=== PATIENT | female | born 1965 | race Caucasian/White ===

== ENCOUNTER → 2017-08-24 07:36 | Outpatient (CLI) | payer OTHER, SELFPAY ==
--- NOTE | 2017-08-24 08:00 | BRBX_PTH ---
PATIENT: TEVIN VILLATORO LOC: ANY U#:[id number] AGE/SX: 59/F ROOM: RE08/24/[address]: Dr. Pita Whyte MD : 1965 BED: DIS: SPEC #: [id number] RECD: 08/24/17 12:50 STATUS: MEENA HIPOLITO #: [id number] ROOSEVELT: 08/24/17 08:[address]: Pita Whyte DEPT: SURGICAL PATHOLOGY RECD BY: Redd Riojas Tissues: Left breast, NOS Procedures: Surgery Specimen Level IV Comments: @ Specimen number changed from [id number] to [id number] @ on 08/24/17 at 1404 by RGOOD. HEADER OPERATION: Left breast stereotactic needle core biopsy PRE-OP DIAGNOSIS: Left breast 11 o?clock middle depth microcalcifications TISSUE SUBMITTED: Left breast core tissue ISCHEMIC TIME: 1 minute FIXATION TIME: 11.5 hours MICROSCOPIC DIAGNOSIS Left breast, 11 o?clock middle depth microcalcifications, stereotactic needle core biopsy: Fibrocystic changes and intraductal hyperplasia without atypia. Focal microcalcifications. Negative for malignancy. JI:blake 08/25/17 COMMENT Correlation with clinical, radiologic findings and appropriate follow up are necessary. MICROSCOPIC DESCRIPTION Slides are reviewed. GROSS DESCRIPTION Received is one container labeled with the patient's name and not further designated. The specimen consists of multiple elongated fragments of oreilly-yellow fibroadipose tissue that in aggregate measure 5 x 3 x 0.3 cm. The entire specimen is submitted in two cassettes. / JI:blake 08/24/17 TC:5 CPT: 96134
--- NOTE | 2017-08-24 09:15 | PCM.OPRPT ---
Report of Operation Date of Procedure: 08/24/17 Pre-Operative Diagnosis: abnormal calcifications on left breast mammograms Post-Operative Diagnosis: same Surgery/Procedure Performed:: left stereotactic breast biopsy Description of Surgical Findings:: deep centrally located calcifications Type of Anesthesia:: Local - 1% xylocaine Anesthesiologist: none Specimen's removed: left breast tissue Estimated Blood Loss (mL): < 1 ml Fluids Replaced: none Description of Procedure: After informed consent was given, the patient was brought into the breast biopsy suite. Appropriate time out protocol was followed. She was then placed in the prone position on the stereotactic biopsy table. The patients left breast was then placed in the opening at the head of the table. A surgical instrument repair specialist compression mammogram was then obtained in the lateral view. The suspicious radiological lesion was then identified. Stereo pictures of the lesion were then taken for XYZ coordinates. The Mammotome biopsy stylus was then positioned where it would be entering into the patients breast. The skin at this site was then cleansed with a surgical skin preparation. The skin and subcutaneous tissues at this site were then infiltrated with 1% xylocaine. A small skin incision was made with an 11 blade scalpel. The biopsy stylus was then positioned into the patients breast at the proper coordinates of depth. Using the Mammotome vacuum-assist device, several core samples of breast tissue were obtained. A specimen mammogram was the obtained and revealed that the abnormal calcifications were within the specimen. A hemostatic marker clip was then placed into the biopsy cavity and a surgical instrument repair specialist film revealed that it was properly deployed. The patient was then placed in the supine position and pressure was applied to the breast until no active bleeding was noted. Steristrips were applied to reapproximate the skin. A unilateral mammogram in the CC and MLO view were then taken which revealed that the marker clip was in the same area as the previous suspicious lesion. The patient tolerated the procedure well and was discharged from the breast biopsy suite in good condition. - Complications none noted
== END ==
PROVIDERS: Visit Provider Surgery
DX: N62 Hypertrophy of breast (principal); R92.0 Mammographic microcalcification found on diagnostic imaging of breast
CPT/HCPCS: 19081; 19082; 88305; J7050

== ENCOUNTER 2017-12-25 10:00 | Outpatient (RCR) | payer OTHER, SELFPAY | END 2018-01-06 23:59 | LOC: DC 10:00 | PROVIDERS: Visit Provider Family Medicine | DX: E11.9 Type 2 diabetes mellitus without complications (principal); I10 Essential (primary) hypertension; Z71.3 Dietary counseling and surveillance | CPT/HCPCS: 97802; G0108 ==

== ENCOUNTER 2018-02-05 10:00 | Outpatient (RCR) | payer OTHER, SELFPAY | END 2018-02-05 23:59 | LOC: DC 10:00 | PROVIDERS: Visit Provider Family Medicine | DX: E11.9 Type 2 diabetes mellitus without complications (principal); I10 Essential (primary) hypertension; Z71.3 Dietary counseling and surveillance | CPT/HCPCS: 97803; G0109 ==

== ENCOUNTER 2018-02-26 09:00 | Outpatient (RCR) | payer OTHER, SELFPAY | END 2018-03-08 23:59 | LOC: DC 09:00 | PROVIDERS: Visit Provider Family Medicine | DX: E11.9 Type 2 diabetes mellitus without complications (principal); I10 Essential (primary) hypertension; Z71.3 Dietary counseling and surveillance | CPT/HCPCS: 97803; G0109 ==

== ENCOUNTER 2018-08-12 09:52 | Outpatient (RCR) | payer OTHER, SELFPAY | END 2018-09-05 23:59 | LOC: DC 09:52 | PROVIDERS: Visit Provider Family Medicine | DX: E11.9 Type 2 diabetes mellitus without complications (principal); I10 Essential (primary) hypertension; Z71.3 Dietary counseling and surveillance ==

== ENCOUNTER → 2018-09-08 08:22 | Outpatient (CLI) | payer OTHER, SELFPAY ==
[2018-09-08 12:49] LABS: Vitamin D,25 Hydroxy 31.5 ng/mL (29.95-100.01)
[2018-09-08 12:50] LABS: ALB/GLOB Ratio 1.2 RATIO (0.9-2.4); AST(SGOT) 18 U/L (15-37); Alanine Aminotransfer ALT/SGPT 22 U/L (13-56); Alkaline Phosphatase 86 U/L (45-117); Anion Gap 9 (5-15); BUN 21 mg/dL (7-18); BUN/Creat Ratio 21.4 RATIO (10-20); Calcium,Total 8.9 mg/dL (8.5-10.1); Chloride 100 mmol/L (98-107); Creatinine, Serum 0.98 mg/dL (0.55-1.02); EST Glomerular Filtration Rate 63 mL/min (>60); Est Glom Filt Rate - Afr Amer 76 mL/min (>60); Globulin 3.4 g/dL (2.2-4.2); Glucose 103 mg/dL (74-106); Potassium 3.7 mmol/L (3.5-5.1); Protein, Total 7.4 g/dL (6.4-8.2); Sodium Level 137 mmol/L (136-145)
[2018-09-08 13:11] LABS: Microalbumin,Random Urine 6.2 mg/L (NO RANGE EST.)
== END ==
PROVIDERS: Family Provider Family Medicine; PCP Family Medicine; Visit Provider Family Medicine
DX: E11.9 Type 2 diabetes mellitus without complications (principal); I10 Essential (primary) hypertension; E55.9 Vitamin D deficiency, unspecified
CPT/HCPCS: 36415; 80053; 82043; 82306; 82570

== ENCOUNTER → 2019-09-14 08:24 | Outpatient (CLI) | payer OTHER, SELFPAY ==
[2019-09-14 13:18] LABS: Hemoglobin A1c 6.4 % (3.8-5.6)
[2019-09-14 13:19] LABS: Cholesterol 192 mg/dL (200); High Density Lipoprotein 67 mg/dL; Triglycerides 110 mg/dL; Very Low Density Lipoprotein 22 mg/dL (5-40)
== END ==
PROVIDERS: PCP Family Medicine; Visit Provider Family Medicine
DX: E11.9 Type 2 diabetes mellitus without complications (principal); I10 Essential (primary) hypertension
CPT/HCPCS: 36415; 80061; 83036

== ENCOUNTER 2021-05-30 16:30 | Outpatient (RCR) | payer OTHER, SELFPAY | END 2021-06-06 23:59 | LOC: DC 16:30 | PROVIDERS: PCP Family Medicine; Referring Provider Family Medicine; Visit Provider Family Medicine | DX: E11.9 Type 2 diabetes mellitus without complications (principal) | CPT/HCPCS: G0108 ==

== ENCOUNTER 2021-06-07 08:44 | Outpatient (CLI) | payer OTHER, SELFPAY ==
--- NOTE | 2021-06-07 08:49 | VDLE_ITS ---
Reason For Study: Left Calf Pain RIGHT LEFT CFV is compressible, spontaneous, phasic, GSV is normal. competent and demonstrates normal CFV is compressible, spontaneous, phasic, augmentation. competent, and demonstrates normal Procedure augmentation. This is a venous duplex using B-mode, color FV is compressible, spontaneous, phasic, flow and spectral Doppler. competent and demonstrates normal Exam performed in department. augmentation. A preliminary report was called and/or faxed POP V is compressible, spontaneous, phasic, to Dr. Victoria. competent and demonstrates normal augmentation. T/P Trunk is compressible. PTV is compressible. LT PerV is compressible. VL/Venous Duplex US, Unilateral Interpretation Summary Deep veins of the left lower extremity are patent and compressible segmentally. There is no evidence of left lower extremity deep vein thrombosis. Valvular competence appears intac t within the proximal deep venous system on the left . The left great saphenous vein appears patent a nd compressible segmentally. Ordering Physician: Mercedes Victoria Referring Physician: Mercedes Victoria Performed By: Corina Renee, ALDO, RVT
== END 2021-06-07 23:59 | disposition home or self-care (01) ==
LOC: CVS 08:47
PROVIDERS: PCP Family Medicine; Referring Provider Family Medicine; Visit Provider Family Medicine
DX: M79.662 Pain in left lower leg (principal)
CPT/HCPCS: 93971

== ENCOUNTER 2021-06-20 10:59 | Outpatient (RCR) | payer OTHER, SELFPAY | END 2021-07-06 23:59 | LOC: DC 10:59 | PROVIDERS: PCP Family Medicine; Referring Provider Family Medicine; Visit Provider Family Medicine | DX: E11.9 Type 2 diabetes mellitus without complications (principal) | CPT/HCPCS: 97802 ==

== ENCOUNTER 2021-07-31 09:30 | Outpatient (RCR) | payer OTHER, SELFPAY | END 2021-08-06 23:59 | LOC: DC 09:30 | PROVIDERS: PCP Family Medicine; Referring Provider Family Medicine; Visit Provider Family Medicine | DX: E11.9 Type 2 diabetes mellitus without complications (principal); I10 Essential (primary) hypertension | CPT/HCPCS: 97803 ==

== ENCOUNTER 2021-08-29 13:00 | Outpatient (RCR) | payer OTHER, SELFPAY | END 2021-09-05 23:59 | LOC: DC 13:00 | PROVIDERS: PCP Family Medicine; Referring Provider Family Medicine; Visit Provider Family Medicine | DX: E11.9 Type 2 diabetes mellitus without complications (principal); I10 Essential (primary) hypertension | CPT/HCPCS: 97803 ==

== ENCOUNTER 2021-09-23 11:30 | Outpatient (RCR) | payer OTHER, SELFPAY | END 2021-10-06 23:59 | LOC: DC 11:30 | PROVIDERS: PCP Family Medicine; Referring Provider Family Medicine; Visit Provider Family Medicine | DX: E11.9 Type 2 diabetes mellitus without complications (principal); I10 Essential (primary) hypertension | CPT/HCPCS: 97803 ==

== ENCOUNTER 2021-10-30 11:30 | Outpatient (RCR) | payer OTHER, SELFPAY | END 2021-11-06 23:59 | LOC: DC 11:30 | PROVIDERS: PCP Family Medicine; Referring Provider Family Medicine; Visit Provider Family Medicine | DX: E11.9 Type 2 diabetes mellitus without complications (principal); I10 Essential (primary) hypertension | CPT/HCPCS: 97803 ==

== ENCOUNTER 2021-12-04 11:30 | Outpatient (RCR) | payer OTHER, SELFPAY | END 2021-12-06 23:59 | LOC: DC 11:30 | PROVIDERS: PCP Family Medicine; Referring Provider Family Medicine; Visit Provider Family Medicine | DX: E11.9 Type 2 diabetes mellitus without complications (principal); I10 Essential (primary) hypertension | CPT/HCPCS: 97803 ==

== ENCOUNTER 2022-01-02 10:58 | Outpatient (RCR) | payer OTHER, SELFPAY | END 2022-01-06 23:59 | LOC: DC 10:58 | PROVIDERS: PCP Family Medicine; Referring Provider Family Medicine; Visit Provider Family Medicine | DX: E11.9 Type 2 diabetes mellitus without complications (principal); I10 Essential (primary) hypertension | CPT/HCPCS: 97803 ==

== ENCOUNTER 2022-02-03 09:30 | Outpatient (RCR) | payer OTHER, SELFPAY | END 2022-02-05 23:59 | LOC: DC 09:30 | PROVIDERS: PCP Family Medicine; Referring Provider Family Medicine; Visit Provider Family Medicine | DX: E11.9 Type 2 diabetes mellitus without complications (principal); I10 Essential (primary) hypertension | CPT/HCPCS: 97803 ==

== ENCOUNTER → 2022-02-10 | Outpatient (CLI) | payer OTHER, SELFPAY ==
[2022-02-10 12:27] LABS: Absolute Lymphocyte Count 1.92 X10^3/uL (0.83-4.51); Absolute Neutrophil Count 4.2 X10^3/uL (2.0-7.7); Basophil# 0.06 X10^3/uL; Basophil% 0.9 % (0-1); Eosinophil# 0.29 X10^3/uL; Eosinophils% 4.1 % (0-5); Hematocrit 36.7 % (37-47); Hemoglobin 12.2 g/dL (12.0-15.0); Lymphocyte # 1.92 X10^3/ul (0.83-4.51); Lymphocyte % 27.4 % (19-41); Mean Corp Hgb Conc 33.2 g/dL (32-36); Mean Corpuscular Hgb 28.6 pg (27.0-32.0); Mean Corpuscular Volume 86.2 fL (81-99); Mean Platelet Vol. 9.6 fl (6.2-12.0); Monocyte# 0.49 X10^3/uL; NRBC Flagged by Analyzer 0 % (0-5); Neutrophil # 4.23 X10^3/uL (2.7-7.7); Neutrophil % 60.3 % (47-70); Platelet Count 363 K/mm3 (150-450); RBC Distribution Width CV 13.2 % (11.6-14.6); RBC Distribution Width SD 41.1 fl (35.1-43.9); Red Blood Count 4.26 M/mm3 (4.2-5.4)
[2022-02-10 13:05] LABS: ALB/GLOB Ratio 1.1 RATIO (0.9-2.4); AST(SGOT) 17 U/L (15-37); Alanine Aminotransfer ALT/SGPT 23 U/L (13-56); Albumin, Serum 3.8 g/dL (3.2-5.0); Alkaline Phosphatase 79 U/L (45-117); Anion Gap 5 (5-15); BUN 15 mg/dL (7-18); BUN/Creat Ratio 17.1 RATIO (10-20); Calcium,Total 9.2 mg/dL (8.5-10.1); Chloride 99 mmol/L (98-107); Cholesterol 204 mg/dL (200); Creatinine, Serum 0.88 mg/dL (0.55-1.02); EST Glomerular Filtration Rate 70 mL/min (>60); Est Glom Filt Rate - Afr Amer 85 mL/min (>60); Globulin 3.5 g/dL (2.2-4.2); Glucose 119 mg/dL (74-106); High Density Lipoprotein 82 mg/dL; Potassium 3.9 mmol/L (3.5-5.1); Protein, Total 7.3 g/dL (6.4-8.2); Sodium Level 132 mmol/L (136-145); Triglycerides 78 mg/dL; Very Low Density Lipoprotein 16 mg/dL (5-40)
[2022-02-10 13:19] LABS: Hemoglobin A1c 6.3 % (3.8-5.6)
[2022-02-10 13:22] LABS: Microalbumin,Random Urine 12.8 mg/L (NO RANGE EST.); Microalbumin:Creatinine Ratio 9.3 mg/g CRE (<30 mg/g CRE)
== END | disposition home or self-care (01) ==
LOC: BFHLAB 10:12
PROVIDERS: PCP Family Medicine; Visit Provider Family Medicine
DX: E11.9 Type 2 diabetes mellitus without complications (principal); I10 Essential (primary) hypertension
CPT/HCPCS: 36415; 80053; 80061; 82043; 82570; 83036; 85025

== ENCOUNTER 2022-02-17 12:56 | Outpatient (RCR) | payer OTHER, SELFPAY | END 2022-03-08 23:59 | LOC: DC 12:56 | PROVIDERS: PCP Family Medicine; Referring Provider Family Medicine; Visit Provider Family Medicine | DX: E11.9 Type 2 diabetes mellitus without complications (principal); I10 Essential (primary) hypertension | CPT/HCPCS: 97803 ==

== ENCOUNTER → 2023-03-30 | Outpatient (CLI) | payer OTHER, SELFPAY ==
[2023-03-30 12:17] LABS: Absolute Lymphocyte Count 2.05 X10^3/uL (0.83-4.51); Absolute Neutrophil Count 5.4 X10^3/uL (2.0-7.7); Basophil# 0.06 X10^3/uL; Basophil% 0.7 % (0-1); Eosinophil# 0.24 X10^3/uL; Eosinophils% 2.9 % (0-5); Hematocrit 37.5 % (37-47); Hemoglobin 12.3 g/dL (12.0-15.0); Lymphocyte # 2.05 X10^3/ul (0.83-4.51); Lymphocyte % 24.5 % (19-41); Mean Corp Hgb Conc 32.8 g/dL (32-36); Mean Corpuscular Hgb 28.5 pg (27.0-32.0); Mean Platelet Vol. 9.1 fl (6.2-12.0); Monocyte# 0.61 X10^3/uL; Monocyte% 7.3 % (0-10); NRBC Flagged by Analyzer 0 % (0-5); Neutrophil # 5.36 X10^3/uL (2.7-7.7); Neutrophil % 64.1 % (47-70); Platelet Count 385 K/mm3 (150-450); RBC Distribution Width CV 13.2 % (11.6-14.6); RBC Distribution Width SD 41.3 fl (35.1-43.9); Red Blood Count 4.31 M/mm3 (4.2-5.4); White Blood Count 8.4 K/mm3 (4.4-11.0)
[2023-03-30 13:03] LABS: Microalbumin,Random Urine 6.3 mg/L (NO RANGE EST.); Microalbumin:Creatinine Ratio 4.2 mg/g CRE (<30 mg/g CRE)
[2023-03-30 13:08] LABS: AST(SGOT) 13 U/L (15-37); Alanine Aminotransfer ALT/SGPT 23 U/L (13-56); Albumin, Serum 3.6 g/dL (3.2-5.0); Alkaline Phosphatase 98 U/L (45-117); Anion Gap 7 (5-15); BUN 14 mg/dL (7-18); BUN/Creat Ratio 16.5 RATIO (10-20); Calcium,Total 9.7 mg/dL (8.5-10.1); Chloride 93 mmol/L (98-107); Cholesterol 207 mg/dL (200); Creatinine, Serum 0.85 mg/dL (0.55-1.02); EST Glomerular Filtration Rate 73 mL/min (>60); Est Glom Filt Rate - Afr Amer 88 mL/min (>60); Globulin 3.7 g/dL (2.2-4.2); Glucose 116 mg/dL (74-106); High Density Lipoprotein 90 mg/dL; Protein, Total 7.3 g/dL (6.4-8.2); Sodium Level 129 mmol/L (136-145); Triglycerides 63 mg/dL; Very Low Density Lipoprotein 13 mg/dL (5-40)
[2023-03-30 13:42] LABS: Hemoglobin A1c 6.9 % (3.8-5.6)
== END | disposition home or self-care (01) ==
LOC: BFHLAB 08:18
PROVIDERS: PCP Family Medicine; Visit Provider Family Medicine
DX: Z00.00 Encounter for general adult medical examination without abnormal findings (principal); E11.9 Type 2 diabetes mellitus without complications; I10 Essential (primary) hypertension
CPT/HCPCS: 36415; 80053; 80061; 82043; 82570; 83036; 85025

== ENCOUNTER 2023-06-19 18:30 | Emergency (ER) | payer OTHER, SELFPAY ==
[2023-06-19] VITALS (7 sets, daily range): BP systolic 152–212; BP diastolic 75–90; PULSE 78–102; RESP 16–20; TEMP 36.1–36.6; O2SAT 95–97; BMI 40.6
--- NOTE | 2023-06-19 18:52 | EDS_ITS ---
HPI History of Present Illness Chief Complaint: Palpitations Detail of Chief Complaint: Palpitations Informant: patient Narrative Narrative: Patient presents with palpitations off and on for the last 2 weeks. At about 2 or 3 episodes in the last 2 weeks and then had another episode today lasting a few seconds. At times feels like her heart is racing and she did become sweaty with one of the episodes. Also she has been having some epigastric pressure discomfort again very erratically and not associated with the palpitations. She states that when this happens if she pushes on her sides it actually helps alleviate that sensation. No family history of heart disease. She herself does not have any cardiac history. She does have history of hypertension and diabetes type 2. PFSH PFSH Allergy/AdvReac Type Severity Reaction Status Date / Time sulfamethoxazole Allergy Severe Hives Verified 06/19/23 18:34 [From Bactrim] trimethoprim [From Bactrim] Allergy Severe Hives Verified 06/19/23 18:34 erythromycin base AdvReac Severe Vomiting Verified 06/19/23 18:34 amoxicillin [From Augmentin] AdvReac Vomiting Verified 06/19/23 18:34 clavulanic acid AdvReac Vomiting Verified 06/19/23 18:34 [From Augmentin] Social History (System 08/24/17 @ 15:03 by Anu Linares) Smoking Status: Never smoker ROS ROS ED Review of Systems ROS Unobtainable: other Constitutional Constitutional ED: Reports lethargy; Denies chills, fever(s), sweats or weight loss Eyes Eyes: Denies blurry vision, change in vision or diplopia ENT ENT ED: Denies rhinorrhea or sore throat Cardiovascular Cardiovascular: Reports palpitations and racing heartbeat; Denies chest pain or orthopnea Respiratory/Chest Respiratory/Chest: Denies cough, dyspnea, dyspnea on exertion, orthopnea or sputum Gastrointestinal Gastrointestinal: Reports other Details: Epigastric discomfort/tightness ; Denies abdominal pain, diarrhea, nausea or vomiting Genitourinary Genitourinary ED: Denies dysuria, hematuria or urinary frequency Musculoskeletal Musculoskeletal: Denies arthralgias, back pain, myalgias or neck pain Integumentary Denies abscess, Abrasions or rash Neurologic Neurologic: Denies headache(s) or weakness Psychiatric Psychiatric: Denies anxiety, depression or suicidal thoughts Endocrine Endocrinology: Denies polydipsia, polyphagia or polyuria Hematologic/Lymphatic Hematologic/Lymphatic: Denies easy bleeding, easy bruising or lymphadenopathy Allergic/Immunologic Allergic/Immunologic ED: Denies mouth swelling, tongue swelling or urticaria EXAM Physical Exam Const Vital Signs: 06/19/23 18:34 06/19/23 18:31 06/19/23 19:19 Temperature 97.0 F L 97.0 F L Temperature Source Temporal Temporal Pulse Rate 102 H 102 H Respiratory Rate 16 16 Respiratory Effort Normal Blood Pressure 212/88 H 212/88 H Blood Pressure Mean 129 129 Pulse Ox Oxygen Delivery Method 06/19/23 19:31 06/19/23 20:00 06/19/23 21:00 Temperature Temperature Source Pulse Rate 100 80 78 Respiratory Rate 18 20 H 20 H Respiratory Effort Blood Pressure 157/75 H 168/85 H 178/90 H Blood Pressure Mean 102 112 119 Pulse Ox 95 96 96 Oxygen Delivery Method Room Air Room Air Room Air Positive well nourished and well developed General Appearance ED: well developed and NAD HEENT Reports TM's clear and moist mucous membranes normocephalic and atraumatic; Negative for trauma or tenderness Tympanic Membrane ED: Yes TM's clear Eyes PERRL and EOMs intact bilaterally General Eye ED: Negative for pale conjunctiva or scleral icterus Neck no lymphadenopathy, supple and no JVD General: Negative for tenderness Chest Wall inspection of chest normal and palpation of chest normal Chest: Negative for tenderness Resp normal respiratory effort and clear to auscultation bilaterally Effort and Inspection: Negative for respiratory distress or pain with movement Auscultation: Negative for rhonchi, wheezes or diminished lung sounds Cardio regular rate, regular rhythm, S1 normal heart sound, S2 normal heart sound and no murmurs Peripheral Pulses: pulses 2+ throughout GI normal to inspection, nondistended, normoactive bowel sounds, soft to palpation, non-tender, non-distended and no masses Back/Spine no CVA tenderness and no thoracic nor lumbar tenderness Extremity normal to inspection General Extremety ED: Negative for edema General Extremity: Negative for edema Neuro oriented x3, CN's II-XII intact bilaterally, no sensory deficits noted and gait normal Sensorium / Orientation: awake, alert, oriented to person, oriented to place and oriented to time Motor Exam: strength 5/5 throughout and strength abnormal Psych mental status grossly normal Skin no rashes or lesions noted and no wounds MDM MDM MDM Narrative Medical decision making narrative: Patient presents with palpitations off-and-on for the last several weeks. She is also had some epigastric discomfort and pressure off and on for about a week or 2. She denies exertional symptoms. In the differential would be GI etiology such as GERD or peptic ulcer disease or esophageal spasm. Palpitations could represent PACs or PVCs versus A-fib or SVT. IV line established. EKG obtained arrival showed a sinus rhythm with a rate of 82 bpm with no acute ST segment katy nges and no evidence of ectopy. CBC with differential 11.6 with hemoglobin 12.5 and platelet count of 366. Chemistries unremarkable. Initial troponin was 19 TSH was normal at 1.9. Delta troponin obtained 2 hours later was normal at 17. Patient did have a depressed potassium at 3.2 so I did give her 40 mill equivalents of potassium chloride p.o. I also gave her a GI cocktail and she thought that maybe that made the discomfort and the pressure in the epigastric region actually a little bit worse. At this point etiology of symptoms unclear I do not feel she is having acute coronary syndrome. We discussed placing a Holter monitor however I am told we are out of Holter monitors. This point recommended she follow-up with her primary care physician within next 3 to 5 days. Advised her to return if chest pain, persistent tachycardia, or condition should worsen in any way. Lab Data Attestation: I reviewed the patient's lab results. Labs: Laboratory Results - last 24 hr 06/19/23 06/19/23 19:17 21:12 WBC 11.6 H RBC 4.42 Hgb 12.5 Hct 36.8 L MCV 83.3 MCH 28.3 MCHC 34.0 RDW Std Deviation 38.4 RDW Coeff of Esau 12.7 Plt Count 366 MPV 9.1 Immature Gran % (Auto) 0.300 Neut % (Auto) 69.8 Lymph % (Auto) 21.4 [place] % (Auto) 5.9 Eos % (Auto) 1.9 Baso % (Auto) 0.7 Absolute Neuts (auto) 8.1 H Absolute Lymphs (auto) 2.48 Nucleated RBC % 0 Sodium 129 L Potassium 3.2 L Chloride 95 L Carbon Dioxide 27.0 Anion Gap 7 BUN 14 Creatinine 0.82 Estim Creat Clear Calc 85.18 Est GFR (MDRD) Af Amer 92 Est GFR (MDRD) Non-Af 76 BUN/Creatinine Ratio 17.1 Glucose 133 H Calcium 9.1 Troponin I High Sens 19 17 TSH 1.91 EKG Initial EKG: Attestation: I personally reviewed and interpreted this EKG as follows: Comments: Sinus rhythm with rate of 82 bpm with no acute ST segment changes Discharge Plan Triage Chief Complaint: Palpitations ED Provider: Aileen Carroll Dx/Rx/DC Orders Clinical Impression: Palpitation Instructions: ED Palpitations Primary Care Provider: Mercedes Victoria Referrals: Mercedes Victoria MD [Primary Care Provider] - 3-5 Days Disposition Disposition: Home, Self Care
--- NOTE | 2023-06-19 18:52 | EKG12_ITS ---
Test Reason : DYSRHYTHMIA Blood Pressure : / mmHG Vent. Rate : 082 BPM Atrial Rate : 082 BPM P-R Int : 160 ms QRS Dur : 074 ms QT Int : 368 ms P-R-T Axes : 039 007 035 degrees QTc Int : 429 ms Normal sinus rhythm Normal ECG Confirmed by Nnamdi Cox ([id number]), newspaper editor managing MESERET GUARDADO ([id number]) on 06/22/2023 6:36:41 AM Referred By: Confirmed By:Nnamdi Cox
[2023-06-19 19:24] LABS: Absolute Lymphocyte Count 2.48 X10^3/uL (0.83-4.51); Absolute Neutrophil Count 8.1 X10^3/uL (2.0-7.7); Basophil# 0.08 X10^3/uL; Basophil% 0.7 % (0-1); Eosinophil# 0.22 X10^3/uL; Eosinophils% 1.9 % (0-5); Hematocrit 36.8 % (37-47); Hemoglobin 12.5 g/dL (12.0-15.0); Lymphocyte # 2.48 X10^3/ul (0.83-4.51); Lymphocyte % 21.4 % (19-41); Mean Corpuscular Hgb 28.3 pg (27.0-32.0); Mean Corpuscular Volume 83.3 fL (81-99); Mean Platelet Vol. 9.1 fl (6.2-12.0); Monocyte# 0.69 X10^3/uL; Monocyte% 5.9 % (0-10); NRBC Flagged by Analyzer 0 % (0-5); Neutrophil % 69.8 % (47-70); Platelet Count 366 K/mm3 (150-450); RBC Distribution Width CV 12.7 % (11.6-14.6); RBC Distribution Width SD 38.4 fl (35.1-43.9); Red Blood Count 4.42 M/mm3 (4.2-5.4); White Blood Count 11.6 K/mm3 (4.4-11.0)
[2023-06-19 19:46] LABS: Anion Gap 7 (5-15); BUN 14 mg/dL (7-18); BUN/Creat Ratio 17.1 RATIO (10-20); Calcium,Total 9.1 mg/dL (8.5-10.1); Chloride 95 mmol/L (98-107); Creatinine, Serum 0.82 mg/dL (0.55-1.02); EST Glomerular Filtration Rate 76 mL/min (>60); Est Glom Filt Rate - Afr Amer 92 mL/min (>60); Estimated Creatinine Clearance 85.18 ml/min; Glucose 133 mg/dL (74-106); Potassium 3.2 mmol/L (3.5-5.1); Sodium Level 129 mmol/L (136-145); Thyroid Stim Hormone (TSH) 1.91 uIU/mL (0.358-3.74); Troponin-I HS 19 pg/mL (3.0-54.0)
[2023-06-19] MEDS: 0.9% Normal Saline (1000mL) 1,000 ML 150 ML IV (19:57)
[2023-06-19] MEDS: Potassium Chloride Oral Tablet 20 MEQ 40 MEQ PO (19:58)
[2023-06-19] MEDS: Mag Hydrox/Al Hydrox/Simeth 30 ML UDC PO (20:43)
[2023-06-19 21:37] LABS: Troponin-I HS 17 pg/mL (3.0-54.0)
== END 2023-06-19 22:27 | disposition home or self-care (01) ==
PROVIDERS: Emergency Provider Emergency Medicine; PCP Family Medicine; Visit Provider Emergency Medicine
DX: R00.2 Palpitations (principal); R10.13 Epigastric pain
CPT/HCPCS: 80048; 84443; 84484; 85025; 93005; 96360; 96361; 99285; J7030; A4216

== ENCOUNTER 2023-06-22 13:00 | Outpatient (RCR) | payer OTHER, SELFPAY ==
--- NOTE | 2023-05-12 09:21 | HP.PTEVAL ---
Patient's Visit Information Visit Information Visit Information: TEVIN VILLATORO is a 57 year old F referred to Physical Therapy by Dr. Mercedes Victoria MD with a diagnosis of Trochanteric hip bursitis/Sciatica. Date of Evaluation: 05/12/23 Physical Therapist: SHARATH Anna Visit Plan Frequency: 2x /Week Duration: 4 Weeks Plan: 2X/ week for 4 weeks for R IT band, piriformis rolling and stretching, R hip ER, abd and hip ext strength, core strength to support SI joint, with HEP Pt does have a big grenadian ball at home FYI HEP: Green strap IT band stretch in supine, supine piriformis stretch with foot on the wall, Green strap HS stretch Subjective Subjective: It started before . She was putting carpet in basement and cutting the carpet on the floor and then over time the achy in her hip got worse. Before said sciatica and bursitis. She was given a cortizone shot and You tube exercises from (PT, bridges, figure 4 in chair, IT in supine).... they helped a lot. 2 weeks ago she was doing some work in her garage and she has been in achy pain since then. It is hard for her to sit and stand. The longer she walks the more intense the pain becomes. She did the stretches more again and it has been better. She stretches piriformis every morning. Her hip aches at night if she does not lay on it. Stairs: make it worse. No N&T. She did have some aching on the R lateral side of her leg and in her foot. She had back pain yesterday more LB and R butt cheek. She does not notice any weakness in her R leg. She got a cortisone shot and it did help her hip pain but she would have R buttock pain and some down the front of her thigh. 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 Pain R hip pain: Pain Intensity (Out of 10): 2 Objective Objective: Gait: decrease stance time on the R LE LE MMT: R hip flex 16.9, Knee ext 19.7, Knee flex 9.6 L hip flex 16.3, knee ext 16.7, knee flex 9.9 Pt is able to walk on heels and toes without issue Trunk AROM: flexion 75%, ext 25%, Rot B 75%, SB B 75% Palpation: tender over R piriformis and R greater trochanter, and IT band and also R SI joint Pt had increase tightness with the R IT band. Pt had pain with end range IT band stretch and deep piriformis stretch Prone lying: no pain laying on her stomach, Prone press ups X 10 with no pain Attempted manual foam rolling and pt felt that in L sidelying... attempt to sit on the foam roll on the chair but did not feel as much Balance/Special Test Scores Lower Extremity Functional Score: 33 Goals Goal 1:: I HEP Goal Time Frame: 6-8 Weeks Goal 2:: Be able to walk without having R hip pain Goal Time Frame: 6-8 Weeks Goal 3:: Be able to complete 3 X 15 Clam shells with resistance without pain Goal Time Frame: 6-8 Weeks Goal 4:: Increase R IT band, piriformis flexibility with no pain Goal Time Frame: 6-8 Weeks Goal 5:: Be able to sleep on the L side without R hip pain Rehabilitation Potential Rehabilitation Potential: Good Anticipated Interventions Patient/Client Instruction: Educate patient on: Condition and Plan of Care For the Purpose of:: To decrease pain, To decrease swelling/inflammation, To increase ROM, To improve nutrient delivery to tissue, To improve muscle performance and motor function, To improve ability to perform ADL's, To increase tolerance to activity/condition/position, To improve performance and independence with ADL's, To decrease level of supervision to perform tasks, To improve ability of physical actions for home/community/work/leisure, To improve gait and locomotor functions, To improve health of tissue, To decrease soft tissue restriction and To increase flexibility/ROM Therapeutic Exercise to Include: Strength training, Postural training, Flexibilty training, Gait and locomotor training, Neuromotor development, Passive ROM, Active ROM, Dynamic Lumbar Stabilization and Scapular Strength/Stabilization For the Purpose of:: To decrease pain, To decrease swelling/inflammation, To increase ROM, To improve nutrient delivery to tissue, To improve muscle performance and motor function, To improve ability to perform ADL's, To increase tolerance to activity/condition/position, To improve performance and independence with ADL's, To decrease level of supervision to perform tasks, To improve ability of physical actions for home/community/work/leisure, To improve gait and locomotor functions, To improve health of tissue, To decrease soft tissue restriction and To increase flexibility/ROM Manual Therapy Techniques to Include: Mobilization, Passive ROM, Functional dry needling and Soft tissue mobilization For the Purpose of:: To decrease pain, To increase ROM, To improve nutrient delivery to tissue, To improve muscle performance and motor function, To improve ability to perform ADL's, To increase tolerance to activity/condition/position, To improve performance and independence with ADL's, To decrease level of supervision to perform tasks, To improve ability of physical actions for home/community/work/leisure, To improve gait and locomotor functions, To improve health of tissue, To decrease soft tissue restriction and To increase flexibility/ROM IF ES: Yes Cryotherapy (ice pack, ice massage): Yes Thermo therapy (hot pack): Yes Ultrasound (thermal/non thermal): Yes For the Purpose of:: To decrease pain, To decrease swelling/inflammation, To increase ROM, To improve nutrient delivery to tissue, To improve muscle performance and motor function, To improve ability to perform ADL's, To increase tolerance to activity/condition/position and To improve performance and independence with ADL's Text: Thank you for the opportunity to evaluate your patient. For Medicare and Medicare HMO plans, please review the plan of care and approve it. It will need to be FAXED BACK to us at [phone] for Medicare purposes. For Medicare only, by signing this I certify the plan of care. Please let me know if there are questions or concerns regarding this plan of care. Physician Signature: Date:
--- NOTE | 2023-06-08 16:24 | HP.PTREVAL_ITS ---
Re-Evaluation Intro: Dr. Mercedes Victoria MD, It has been my pleasure to treat TEVIN VILLATORO over the last 9 visits for Trochanteric hip bursitis/Sciatica. Please see the progress note below for an update on the physical therapy plan of care! Subjective Subjective: Pt reports that she is not as bad as when she first came in but she was working outside for 2 hours yesterday and she would get the pain in her butt and some pain across her LB when she would bend over and some pain that would come down the carr. Objective Objective/Function: Pt weak B hip abd with MMT 4-/5 B with increase pulling on the R side, tight R hip flexor, weak core, and poor mechanics when working in the garden/yard Plan Plan Plan: 2X/ week for 4 weeks for R IT band, piriformis rolling and stretching, R hip ER, abd and hip ext strength, core strength to support SI joint, with HEP: blue band hip abd with bridge, ball or no ball legs only bug, supine hip ab d, squats to chair and stretch hip flexor Pt does have a big german ball at home FYI HEP: Green strap IT band stretch in supine, supine piriformis stretch with foot on the wall, Green strap HS stretch Balance/Gait/Functional tests Balance/Special Test Scores Lower Extremity Functional Score: 59 Goals Goals Goal 1:: I HEP Goal Time Frame: 6-8 Weeks Goal 2:: Be able to walk without having R hip pain Goal Time Frame: 6-8 Weeks Goal Progress: Progressing Goal 3:: Be able to complete 3 X 15 Clam shells with resistance without pain Goal Time Frame: 6-8 Weeks Goal 4:: Increase R IT band, piriformis flexibility with no pain Goal Time Frame: 6-8 Weeks Goal 5:: Be able to sleep on the L side without R hip pain Goal Progress: Not Progressing Anticipated Interventions Anticipated Interventions Patient/Client Instruction: Educate patient on: Condition and Plan of Care For the Purpose of:: To decrease pain, To decrease swelling/inflammation, To increase ROM, To improve nutrient delivery to tissue, To improve muscle performance and motor function, To improve ability to perform ADL's, To increase tolerance to activity/condition/position, To improve performance and independence with ADL's, To decrease level of supervision to perform tasks, To improve ability of physical actions for home/community/work/leisure, To improve gait and locomotor functions, To improve health of tissue, To decrease soft tissue restriction and To increase flexibility/ROM Therapeutic Exercise to Include: Strength training, Postural training, Flexibilty training, Gait and locomotor training, Neuromotor development, Passive ROM, Active ROM, Dynamic Lumbar Stabilization and Scapular Strength/Stabilization For the Purpose of:: To decrease pain, To decrease swelling/inflammation, To increase ROM, To improve nutrient delivery to tissue, To improve muscle performance and motor function, To improve ability to perform ADL's, To increase tolerance to activity/condition/position, To improve performance and independence with ADL's, To decrease level of supervision to perform tasks, To improve ability of physical actions for home/community/work/leisure, To improve gait and locomotor functions, To improve health of tissue, To decrease soft tissue restriction and To increase flexibility/ROM Manual Therapy Techniques to Include: Mobilization, Passive ROM, Functional dry needling and Soft tissue mobilization For the Purpose of:: To decrease pain, To increase ROM, To improve nutrient delivery to tissue, To improve muscle performance and motor function, To improve ability to perform ADL's, To increase tolerance to activity/condition/position, To improve performance and independence with ADL's, To decrease level of supervision to perform tasks, To improve ability of physical actions for home/community/work/leisure, To improve gait and locomotor functions, To improve health of tissue, To decrease soft tissue restriction and To increase flexibility/ROM IF ES: Yes Cryotherapy (ice pack, ice massage): Yes Thermo therapy (hot pack): Yes Ultrasound (thermal/non thermal): Yes For the Purpose of:: To decrease pain, To decrease swelling/inflammation, To increase ROM, To improve nutrient delivery to tissue, To improve muscle performance and motor function, To improve ability to perform ADL's, To increase tolerance to activity/condition/position and To improve performance and independence with ADL's Re-Evaluation Ending Re-evaluation ending: Please do not hesitate to contact me at [phone] by phone or if you have questions or concerns regarding this new plan of care! Sincerely, SHARATH Anna
--- NOTE | 2023-08-27 14:24 | HP.PTDCNRP_ITS ---
Patient Information Patient Information: TEVIN VILLATORO was seen in my office for initial evaluation on 05/12/23. The following Plan of Care was established for this patient: POC Established Initial Frequency: 2x /Week Initial Duration: 4 Weeks Anticipated Interventions Patient/Client Instruction: Educate patient on: Condition and Plan of Care For the Purpose of:: To decrease pain, To decrease swelling/inflammation, To increase ROM, To improve nutrient delivery to tissue, To improve muscle performance and motor function, To improve ability to perform ADL's, To increase tolerance to activity/condition/position, To improve performance and independence with ADL's, To decrease level of supervision to perform tasks, To improve ability of physical actions for home/community/work/leisure, To improve gait and locomotor functions, To improve health of tissue, To decrease soft tissue restriction and To increase flexibility/ROM Therapeutic Exercise to Include: Strength training, Postural training, Flexibilty training, Gait and locomotor training, Neuromotor development, Passive ROM, Active ROM, Dynamic Lumbar Stabilization and Scapular Str ength/Stabilization For the Purpose of:: To decrease pain, To decrease swelling/inflammation, To increase ROM, To improve nutrient delivery to tissue, To improve muscle perform ance and motor function, To improve ability to perform ADL's, To increase tolerance to activity/condition/position, To improve performance and independence with ADL's, To decrease level of supervision to perform tasks, To improve ability of physical actions for home/community/work/leisure, To improve gait and locomotor functions, To improve health of tissue, To decrease soft tissue restriction and To increase flexibility/ROM Manual Therapy Techniques to Include: Mobilization, Passive ROM, Functional dry needling and Soft tissue mobilization For the Purpose of:: To decrease pain, To increase ROM, To improve nutrient delivery to tissue, To improve muscle performance and motor function, To improve ability to perform ADL's, To increase tolerance to activity/condition/position, To improve performance and independence with ADL's, To decrease level of supervision to perform tasks, To improve ability of physical actions for home/community/work/leisure, To improve gait and locomotor functions, To improve health of tissue, To decrease soft tissue restriction and To increase flexibility/ROM IF ES: Yes Cryotherapy (ice pack, ice massage): Yes Thermo therapy (hot pack): Yes Ultrasound (thermal/non thermal): Yes For the Purpose of:: To decrease pain, To decrease swelling/inflammation, To increase ROM, To improve nutrient delivery to tissue, To improve muscle performance and motor function, To improve ability to perform ADL's, To increase tolerance to activity/condition/position and To improve performance and independence with ADL's Last Seen Last Seen: This patient was last seen in our office 06/22/23. Pertinent comments regarding their Physical therapy will appear below: [facility] At this point I will be discontinuing this patient from physical therapy. I would be happy to see this patient again in the future if found appropriate by the physician. Thank you! Mary Mann, MPT Balance/Gait/Functional tests Balance/Special Test Scores Lower Extremity Functional Score: 59
== END 2023-06-22 19:00 | disposition home or self-care (01) ==
LOC: PT 13:00
PROVIDERS: PCP Family Medicine; Visit Provider Family Medicine
DX: M70.60 Trochanteric bursitis, unspecified hip (principal); M54.30 Sciatica, unspecified side
CPT/HCPCS: 97110; 97140; 97161; 97530